=== PATIENT | female | born 1965 | race Caucasian/White ===

== ENCOUNTER 2018-06-13 00:16 | Outpatient (CLI) | payer BC, SELFPAY ==
[2018-06-13 10:39] LABS: Cholesterol 255 mg/dL (50-200); Glucose 90 mg/dL (70-100); HDL Cholesterol 77 mg/dL (40-60); LDL CHOLESTEROL 160 mg/dL (<100); Triglyceride 79 mg/dL (30-150)
== END 2018-06-13 00:36 ==
PROVIDERS: PCP Family Medicine; Visit Provider Family Medicine
DX: E66.3 Overweight (principal)
CPT/HCPCS: 36415; 80061; 82947; 83721

== ENCOUNTER 2019-11-23 01:51 | Outpatient (CLI) | payer BC, SELFPAY ==
[2019-11-23 11:59] LABS: Calculated LDL 193 mg/dL (<100); Cholesterol 284 mg/dL (<200); Glucose 92 mg/dL (74-106); HDL Cholesterol 80 mg/dL (40-60); Triglyceride 59 mg/dL (<150)
[2019-11-26 16:51] LABS: ALT 45 U/L (14-59); AST 26 U/L (15-37)
[2019-11-29 10:24] LABS: Hepatitis C Ab w Rflx HCV PCR Negative (Negative)
== END 2019-11-23 02:11 ==
PROVIDERS: PCP Family Medicine; Visit Provider Family Medicine
DX: E78.5 Hyperlipidemia, unspecified (principal); R73.9 Hyperglycemia, unspecified; Z11.59 Encounter for screening for other viral diseases
CPT/HCPCS: 36415; 80061; 82947

== ENCOUNTER 2019-11-26 11:29 | Outpatient (REF) | payer BC, SELFPAY ==
--- NOTE | 2019-11-26 10:45 | PAPFT_PTH ---
PATIENT: Zoila Conway LOC: [facility] U#:[id number] AGE/SX: 54/F ROOM: RE11/26/[address]: SUMA Boyd : 1965 BED: DIS: 11/26/2019 SPEC #: [id number] RECD: 11/26/19 12:58 STATUS: FREDDY REQ #: [id number] ALLISON: 11/26/19 10:[address]: Sheila Monzon DEPT: [facility] Cytology RECD BY: Kaitlynn Flynn ENTERED: 11/26/19 12:59 SP TYPE: PAPFT OTHR DR: Saeed Prieto MD Tissues: 1 - CX/ENDOCX FOR PAP SMEARS Procedures: PAP THIN PREP/UVM Screening HPV DNA PROBE Comments: [id number]
== END 2019-11-26 11:49 ==
LOC: LBN 11:29
PROVIDERS: PCP Family Medicine; Visit Provider Nurse Practitioner Family
DX: Z12.4 Encounter for screening for malignant neoplasm of cervix (principal); Z11.51 Encounter for screening for human papillomavirus (HPV)
CPT/HCPCS: 86803; 88142; 84450; 84460; 87624

== ENCOUNTER 2020-03-17 00:38 | Outpatient (CLI) | payer BC, SELFPAY ==
--- NOTE | 2020-03-17 06:45 | DI.US_ITS ---
EXAM: US PELVIS TRANSVAGINAL CLINICAL HISTORY: Endometrial hyperplasia, N85.00. TECHNIQUE: Transabdominal and transvaginal pelvic ultrasound was performed using standard protocol. COMPARISON: US PELVIS TRANSVAG from 03/30/2015 FINDINGS: KIDNEYS: Kidneys are symmetric in size. No evidence of renal calculi. No evidence of hydronephrosis. No renal mass or cyst identified. UTERUS: Position: Anteverted. Size: 12.4 long by 8.5 AP by 11.1 transverse cm Endometrium: Obscured by the patient's fibroids. Cm. Normal for patient's menstrual status. Myometrium: Numerous hypoechoic masses within the mitral medium consistent with fibroids. The larges t measures 5.4 x 3.6 x 3.8 cm. Cervix: Unremarkable. OVARIES: Right: 2.9 x 1.8 x 2.0 cm. The right ovary was only seen transabdominally. Cyst or mass: None. Left: Left ovary was not seen transabdominally or transvaginally. No left adnexal mass is appreciate d. CUL-DE-SAC: Free fluid: None. Other: None. IMPRESSION: 1. Normal sonographic appearance of the kidneys. 2. Enlarged fibroid uterus. Endometrial stripe could not be evaluated due to the multiple uterine fi broids. 3. The right ovary is unremarkable and visualized only transabdominally. The left ovary was not seen transabdominally or transvaginally. DATA REPOSITORY:
== END 2020-03-17 00:58 ==
PROVIDERS: PCP Family Medicine; Visit Provider Obstetrics & Gynecology
DX: N85.00 Endometrial hyperplasia, unspecified (principal); D25.9 Leiomyoma of uterus, unspecified; N85.2 Hypertrophy of uterus
CPT/HCPCS: 76830; 76856

== ENCOUNTER 2020-03-22 17:07 | Outpatient (REF) | payer BC, SELFPAY ==
--- NOTE | 2020-03-22 15:30 | ENDOMET_PTH ---
PATIENT: Zoila Conway LOC: N U#:[id number] AGE/SX: 55/F ROOM: RE03/22/[address]: Paul Dallas MD : 1965 BED: DIS: 03/22/2020 SPEC #: [id number] RECD: 03/22/20 17:12 STATUS: FREDDY REQ #: [id number] ALLISON: 03/22/20 15:[address]: Paul Dallas DEPT: Surgical Specimen RECD BY: Kaitlynn Fylnn ENTERED: 03/22/20 17:12 SP TYPE: Endomet OTHR DR: Saeed Prieto MD Tissues: 1 - ENDOMETRIUM BX/CURRETTE Procedures: GROSS AND MICRO LEVEL 4 Comments: [id number]
== END 2020-03-22 17:27 ==
LOC: LBN 17:07
PROVIDERS: PCP Family Medicine; Visit Provider Obstetrics & Gynecology
DX: N85.8 Other specified noninflammatory disorders of uterus (principal); N85.01 Benign endometrial hyperplasia
CPT/HCPCS: 88305

== ENCOUNTER 2020-03-23 00:20 | Outpatient (CLI) | payer BC, SELFPAY ==
--- NOTE | 2020-03-23 06:30 | DI.MAMMO_ITS ---
EXAM: MG MAMMO SCREENING MG MAMMO SCREENING the CLINICAL HISTORY: screening, Z12.39 TECHNIQUE: Mammograms were interpreted according to the usual protocol including computer analysis w [employer] CAD system, tomosynthesis and C-view imaging. COMPARISON: 2009 through 2015 FINDINGS: The breasts are composed of mainly fatty density , Breast Density category A. No suspicious masses or suspicious microcalcifications are seen. No skin thickening or abnormal axillary lymph nodes are seen. There has been no significant change from prior exams. IMPRESSION: BI-RADS Category 1, negative. Yearly screening mammography is recommended. Breast Density Category A, fatty density.
== END 2020-03-23 00:40 ==
PROVIDERS: PCP Family Medicine; Visit Provider Family Medicine
DX: Z12.31 Encounter for screening mammogram for malignant neoplasm of breast (principal)
CPT/HCPCS: 77063; 77067

== ENCOUNTER 2021-04-09 02:02 | Outpatient (CLI) | payer BC, SELFPAY ==
[2021-04-09 13:25] LABS: AST 20 U/L (15-37); Calculated LDL 122 mg/dL (<100); Cholesterol 217 mg/dL (<200); HDL Cholesterol 81 mg/dL (40-60); Triglyceride 71 mg/dL (<150)
== END 2021-04-09 02:03 | disposition home or self-care (01) ==
PROVIDERS: PCP Family Medicine; Visit Provider Family Medicine
DX: E78.5 Hyperlipidemia, unspecified (principal); K76.0 Fatty (change of) liver, not elsewhere classified
CPT/HCPCS: 36415; 80061; 84450

== ENCOUNTER 2021-06-13 02:57 | Outpatient (CLI) | payer BC, SELFPAY ==
[2021-06-13 10:28] LABS: Source Nasal/Nares
[2021-06-13 18:14] LABS: COVID-19 PCR Negative (Negative)
== END 2021-06-13 02:58 | disposition home or self-care (01) ==
LOC: LBO 02:57
PROVIDERS: PCP Family Medicine; Visit Provider Surgery
DX: Z20.822 Contact with and (suspected) exposure to COVID-19 (principal); Z01.818 Encounter for other preprocedural examination
CPT/HCPCS: 87635

== ENCOUNTER 2021-06-15 11:22 | Day surgery (SDC) | payer BC, SELFPAY ==
--- NOTE | 2021-06-15 11:17 | W.ANESPRE ---
General Info Date of Service Date Performed: 06/15/21 Height: 5 ft 6.5 in Weight: 95.254 kg Body Mass Index (BMI): 33.3 Surgical Procedure: Operation Date: 06/15/21 12:05 Proposed Procedures Side Surgeon stephenie Jacobo, DO Meds Allergies and Home Medications Allergies Allergy/AdvReac Type Severity Reaction Status Date / Time ANIMAL DANDER Allergy Mild Uncoded 06/15/21 11:44 DUST Allergy Mild Uncoded 06/15/21 11:44 Home Medication Medication Instructions Recorded atorvastatin 10 mg tablet 10 mg PO QHS #90 tab 11/20/20 fexofenadine 180 mg tablet 180 mg PO DAILY #90 tab 04/04/21 montelukast 10 mg tablet 10 mg PO QPM #90 tab 04/04/21 bisacodyl 5 mg tablet,delayed 5 mg PO ONCE #4 tab 06/08/21 release polyethylene glycol 3350 17 238 g PO ONCE #238 g 06/08/21 gram/dose oral powder Current Visit Medications: Current Medications Generic Name Dose Route Start Last Admin Trade Name Freq PRN Reason Stop Dose Admin Ringer's Solution 1,000 mls @ 80 mls/hr 06/15/21 06:00 IV 07/14/21 23:59 INFUSION BURTON IV Miscellaneous Supplies 1 each 06/15/21 06:00 Iv Access IV 07/14/21 23:59 DIRECTED BURTON Sodium Chloride 0 ml 06/15/21 06:00 Normal Saline Flush 10 Ml Syr IV 07/14/21 23:59 PRN PRN Sodium Chloride 0 ml 06/15/21 06:00 Normal Saline 10 Ml Vial IJ 07/14/21 23:59 DIRECTED PRN Sterile Water 0 ml 06/15/21 06:00 Water,Injection,Sterile 10 Ml Vial IJ 07/14/21 23:59 DIRECTED PRN PFSH Active Problems Active Problems: Problem Status Onset Code Intramural uterine fibroid D25.1 Simple endometrial hyperplasia N85.01 Hyperlipidemia with target LDL less than 100 E78.5 Endometrial hyperplasia 03/10/12 N85.00 Giant cell tumor 12/26/15 D48.9 Polyp of colon 12/06/13 K63.5 Facial lesion L98.9 Screening for viral disease Z11.59 Onychomycosis due to dermatophyte 06/23/12 B35.1 Medical History Medical History Endometrial hyperplasia (03/10/12) WITHOUT ATYPIA Giant cell tumor (12/26/15) Dr. Gomez; Tenosynovial Hyperlipidemia with target LDL less than 100 Intramural uterine fibroid Polyp of colon (12/06/13) 12/06/13; TUBULAR ADENOMA Simple endometrial hyperplasia Surgical History Surgical History bunionectomy (11/02/14) DR. ALEJANDRO; LEFT Endometrial Biopsy (02/07/12) SIMPLE HYPERPLASIA WITHOUT ATYPIA EXCISION MASS RIGHT MIDDLE FINGER (12/26/15) DR. MCCOY Tonsillectomy Tobacco Smoking/Tobacco Use Status: Former Tobacco Use Tobacco: How many years used: 2 Passive smoking exposure: Yes Second hand exposure: Yes Alcohol Alcohol Intake: current Alcohol intake frequency: 0-2 drinks per day Alcohol type: wine and hard liquor Substance Use Substance use: Never Substance use type: does not use Vital Signs and Lab Results Vital Signs Most Recent Vital Signs in EMR: Temp Pulse Resp BP Pulse Ox 36.5 C 68 16 140/87 99 06/15/21 11:38 06/15/21 11:38 06/15/21 11:38 06/15/21 11:38 06/15/21 11:38 Lab Results Blood Type / Crossmatch: No Data to Display Complete Blood Count: No Data to Display Complete Metabolic Panel: No Data to Display Liver Function Panel: No Data to Display Coagulation Panel: No Data to Display Cardiac Panel: No Data to Display Arterial Blood Gas: No Data to Display Venous Blood Gas: No Data to Display Pancreas Panel: No Data to Display Thyroid Panel: No Data to Display Infectious Disease: Coronavirus (COVID-19)(PCR) Negative (Negative) 06/13/21 09:00 06/13/21 Coronavirus 2019 Source Nasal/Nares 06/13/21 09:00 06/13/21 Blood Cultures: No Data to Display Toxicology Panel: No Data to Display Anesthesia Assessment and Plan Anesthesia History Personal History: No History of Anesthesia Complications Family History: No Family History of Anesthesia Complications Exercise Tolerance Exercise Tolerance: Metabolic Equivalents>4 Cardiac & Pulmonary Exam Cardiac Exam: Normal S1/S2 Heart Sounds Pulmonary Exam: Clear Bilateral Breath Sounds Airway Exam Known Difficult Airway: No Mallampati Class: 2 Mouth Opening: Normal (> 3cm) Thyromental Distance: Greater than 3 cm Neck Range of Motion: Full ROM Neck Circumference: Normal Teeth Condition: Normal Dentition ASA Classification ASA Score: ASA 2 Emergency Case?: No NPO Status NPO Status: NPO Clears >2 hours, Solids >8 hours Anesthesia Plan Resuscitation Status: Full Code Anesthesia Technique: General Anesthesia Airway Planned: Natural Airway Monitors Used: Standard Monitors Preoperative Comments:: 56 yo female with a history of colon polyps/tubular adenoma here for a colonoscopy. Denies any cardiac, pulmonary, liver, kidney neurologic issues. Former smoker, occ etoh. Plan prop/no airway.
[2021-06-15 11:38] VITALS: BP 140/87; PULSE 68; RESP 16; TEMP 36.5; O2SAT 99
[2021-06-15] MEDS: Lactated Ringers 1,000 ML 80 ML IV (11:59)
[2021-06-15 12:07] VITALS: BMI 33.3
--- NOTE | 2021-06-15 13:14 | BOWEL_PTH ---
PATIENT: Zoila Conway LOC: [facility] U#:[id number] AGE/SX: 56/F ROOM: RE06/15/[address]: Claire Jacobo : 1965 BED: DIS: 06/15/2021 SPEC #: [id number] RECD: 06/15/21 13:33 STATUS: FREDDY REQ #: [id number] ALLISON: 06/15/21 13:[address]: Claire Jacobo DEPT: Surgical Specimen RECD BY: Kaitlynn Flynn ENTERED: 06/15/21 13:33 SP TYPE: Bowel OTHR DR: Saeed Prieto MD Tissues: 1 - BIOPSY BOWEL Procedures: GROSS AND MICRO LEVEL 4 Comments: [id number]
[2021-06-15 13:35] VITALS: BP 100/69; PULSE 66; RESP 16; TEMP 36.6; O2SAT 97
--- NOTE | 2021-06-15 13:37 | PDOC.DSDIS_ITS ---
Discharge Plan Disposition Patient Disposition: HOME Condition: Good Discharge Details Reason For Visit: colon scope Attending Provider: Claier Jacobo Primary Care Provider: Saeed Prieto Home Meds and New Rx's Prescriptions: Continued fexofenadine 180 mg tablet 180 mg PO DAILY Qty: 90 RF: 3 montelukast 10 mg tablet 10 mg PO QPM Qty: 90 RF: 3 atorvastatin 10 mg tablet 10 mg PO QHS Qty: 90 RF: 3 Discontinued polyethylene glycol 3350 17 gram/dose powder 238 g PO ONCE Qty: 238 RF: 0 bisacodyl [Dulcolax (bisacodyl)] 5 mg tablet,delayed release (DR/EC) 5 mg PO ONCE Qty: 4 RF: 0 Discharge Instructions Additional Instructions: DSU Colonoscopy Post- Op Instructions Instructions for Everyone who is given Anesthesia: For your safety, please do the following for the next twenty-four (24) hours: *Do Not operate a motor vehicle (car, truck, motorcycle, etc.) *Do Not drink alcoholic beverages or use any recreational drugs for the first 24 hours or while taking pain medications. The medications in your body may have a reaction that can be dangerous. *Do Not make any important decisions or sign any important papers. Findings: small polyp few small diverticula Follow up: My office will send a letter in 2 to 3 weeks time detailing as to what type of polyp it was we want you to repeat your colonoscopy. Make sure you are following a high-fiber diet and avoid straining to move your bowels. 1. No lifting over 20 pounds or strenuous activity for the first 24 hours after your procedure. After 24 hours there are no restrictions on your activity but you may feel fatigued for a few days. 2. After you arrive home you may have a light meal and return to your normal diet as you can tolerate it without feeling sick to your stomach. 3. You may have a bloated, gaseous feeling in your belly (abdomen) after a colonoscopy. Passing gas and belching will help. Walking or lying down on your left side with your knees flexed may relieve the discomfort. Call the office at [phone] (Office) or [phone] (Hospital) right away if you notice any of the following: a.Vomiting of blood or ?coffee ground stools?. b.Rectal bleeding 1Tbsp, blood clots or continuous bleeding. c.Severe belly (abdominal) pain. d.A hard distended belly (abdomen) and an inability to pass gas. 4. Please don?t expect to have a normal BM (bowel movement) for 2-3 days after your procedure. 5. If there are questions regarding the findings of your procedure, please contact your doctor 6. If you are unable to contact your doctor with a problem, contact the hospital at [phone]. 7. Continue all your regular medications unless directed otherwise. I understand the above instructions and have no questions. Signature of Patient or Adult Escort Name of Responsible Adult Escort Signature of Nurse Date/Time Activity:: see above Diet:: see above Discharge Orders Discharge Orders: Discharge Order (Routine); Ordered 06/15/21 Ordered By: Claire Jacobo DS: Diagnosis Discharge Diagnosis (1) Adenomatous polyps: Status: Acute (2) Diverticula of colon: Status: Acute
--- NOTE | 2021-06-15 13:41 | W.COLOREPORT ---
Colonoscopy Report Date of procedure: 06/15/21 Pre-op diagnosis general: A. polyps Post-op diagnosis procedure note: other (polyps and diverticula ) Surgeon: Claire Jacobo Anesthesia Type: General:No Airway Estimated blood loss (mL): 1 Pathology: other Complications: None Disposition: same day Prep: Miralax/Dulcolax Retraction Time: 10 Procedure Description: After informed consent was obtained the patient was taken to the procedure room and placed in a left decubitous position. Monitors were applied and a time out was done. The patients name, date of , procedure, allergies to medications and metal in their body was reviewed. The patient was then sedated. Once sedated and comfortable a rectal exam was done. External exam was normal. Internal exam revealed a normal sphincter tone and no palpable masses. The scope was then introduced and retrofelexed. No internal hemorrhoids were identified. The scope was then advanced to the cecum w/out difficulty. The TI and appendiceal orifice were identified. The prep was good. The scope was then slowly retracted over 10 minutes back into the rectum. She had a flat 5mm polyp that was removed at 30 cm with a cold biting forcep. All specimen was retrieved and no bleeding was noted. She has a few small scattered diverticula in the sigmoid colon. There is no signs of active bleeding or infection. The scope was removed and the patient was woken up and taken back to Same day surgery in stable condition. The patient tolerated the procedure well and there were no immediate complications. Follow up: The patient should follow up in 5 years unless they develop changes in bowel habits or other new gastrointestinal complaints.
[2021-06-15 14:09] VITALS: BP 161/72; PULSE 63; RESP 18; TEMP 36.1; O2SAT 98
--- NOTE | 2021-06-15 14:13 | W.ANESPOSTOP ---
Postoperative Evaluation Date, Time and Location Date Performed: 06/15/21 Time Performed: 14:13 Patient Location: Day Surgery Unit Vital Signs Most Recent Imported Vital Signs: Most Recent Vital Signs Temp Pulse Resp BP Pulse Ox 36.1 C L 63 18 161/72 H 98 06/15/21 14:09 06/15/21 14:09 06/15/21 14:09 06/15/21 14:09 06/15/21 14:09 Pain Score Most Recent Pain Score: Most Recent Pain Score Pain Level 0 06/15/21 14:09 Assessment Mental Status: Awake (Alert & Oriented to Patient Baseline) Airway and Respiratory Function: Patent airway with normal (patient baseline) respiratory exam Cardiovascular Function: Hemodynamically Stable Hydration Status: Adequately Hydrated Nausea & Vomiting: No Nausea or Vomiting Pain: Pt. Denies Any Pain Peripheral Nerve Block: Patient did not receive a nerve block
== END 2021-06-15 14:08 | disposition home or self-care (01) ==
PROVIDERS: PCP Family Medicine; Visit Provider Surgery
PROC: 0DJD8ZZ Inspection of Lower Intestinal Tract, Via Natural or Artificial Opening Endoscopic (ICD-10-PCS; CPT 45378; principal; 2021-06-15 12:00)
DX: Z12.11 Encounter for screening for malignant neoplasm of colon (principal); D12.5 Benign neoplasm of sigmoid colon; K57.30 Diverticulosis of large intestine without perforation or abscess without bleeding
CPT/HCPCS: 45380; 88305; J2001

== ENCOUNTER → 2022-04-19 15:09 | Outpatient (CLI) | payer BC, SELFPAY ==
--- NOTE | 2022-04-19 11:00 | DI.RAD_ITS ---
Exam(s) XR KNEE RT 4V AP,LAT,HERI,PAT EXAM: XR KNEE RT 4V AP,LAT,HERI,PAT CLINICAL HISTORY: Right knee pain--M25.561. TECHNIQUE: 2D digital imaging was performed of the right knee. Five views obtained. AP, lateral, Me rchant and PA tunnel views were obtained. COMPARISON: No exams were available for comparison FINDINGS: BONES: No acute fracture is present. No bony destructive lesion is seen. JOINTS: There is periarticular spurring involving all 3 joint compartments. There is marked narrowin g of the patellofemoral joint. No joint effusion is seen. SOFT TISSUE: Normal. IMPRESSION: Moderate degenerative changes of the right knee. DATA REPOSITORY: RADIATION DOSE DELIVERED:
== END ==
PROVIDERS: PCP Family Medicine; Visit Provider Physician Assistant Medical
DX: M17.11 Unilateral primary osteoarthritis, right knee
CPT/HCPCS: 73564

== ENCOUNTER → 2022-05-07 01:33 | Outpatient (CLI) | payer BC, SELFPAY ==
--- NOTE | 2022-05-07 07:45 | DI.MAMMO_ITS ---
Exam(s) MAMMO SCREENING EXAM: MAMMO SCREENING CLINICAL HISTORY: screening,z12.39 TECHNIQUE: Mammograms were interpreted according to the usual protocol including computer analysis w [employer] CAD system, tomosynthesis and C-view imaging. COMPARISON: FINDINGS: The breasts are of moderate density with fairly symmetrical distribution of fibroglandular tissue. N o dominant mass or clumped microcalcification is identified in either breast. The current examinatio n compared with previous examinations including March 2020 and there has been no gross interval change in appearance in comparison with the prior studies. IMPRESSION: No specific evidence of malignancy at this time. Routine screening examinations are suggested at yea rly intervals in this age group according to the ACS ACR guidelines. BI-RADS Category 1 - Negative Breast Density - Category B - Scattered areas of fibroglandular density
== END ==
PROVIDERS: PCP Family Medicine; Visit Provider Family Medicine
DX: Z12.31 Encounter for screening mammogram for malignant neoplasm of breast (principal)
CPT/HCPCS: 77063; 77067

== ENCOUNTER 2023-07-30 11:27 | Outpatient (CLI) | payer BC, SELFPAY ==
[2023-07-30 12:39] LABS: HGB 13.9 g/dL (11.2-15.7); MCH 31.3 pg (27.0-33.0); MCHC 34.8 % (32.0-36.0); MCV 90 fL (80-95); MPV 11.7 fL (8.0-11.0); Platelet Count 210 10^3/uL (130-400); RBC 4.44 10^6/uL (3.93-5.22); RDW 12.5 % (11.7-14.6); RDW-SD 41.1 fL; WBC 5.96 10^3/uL (4.4-10.8)
[2023-07-30 12:51] LABS: Hemoglobin A1C 4.9 % (<5.7)
[2023-07-30 13:00] LABS: Calculated LDL 107 mg/dL (<100); Cholesterol 195 mg/dL (<200); HDL Cholesterol 76 mg/dL (40-60); TSH (W/Ref FT4) 3.86 uIU/mL (0.36-3.74); Triglyceride 62 mg/dL (<150)
[2023-07-30 13:43] LABS: FREE T4 1.04 ng/dL (0.76-1.46)
== END 2023-07-30 11:28 | disposition home or self-care (01) ==
LOC: LOS 11:27
PROVIDERS: PCP Family Medicine; Visit Provider Family Medicine
DX: E66.9 Obesity, unspecified (principal); E78.5 Hyperlipidemia, unspecified; F34.1 Dysthymic disorder; M79.671 Pain in right foot; Z00.00 Encounter for general adult medical examination without abnormal findings
CPT/HCPCS: 36415; 80061; 85027; 83036; 84439; 84443

== ENCOUNTER 2024-05-18 01:28 | Outpatient (CLI) | payer BC, SELFPAY ==
--- NOTE | 2024-05-18 07:35 | DI.RAD_ITS ---
Exam(s) XR FOOT RT COMPLETE EXAM: XR FOOT RT COMPLETE CLINICAL HISTORY: Right foot pain,m79.671. TECHNIQUE: 2D digital imaging was performed of the right foot. Three images were obtained. AP, obl ique and lateral views were obtained. COMPARISON: No exams were available for comparison FINDINGS: BONES: No acute fracture is present. No bony destructive lesion is seen. There is a small plantar asuncion caneal spur. JOINTS: No dislocation present. There is a mild hallux valgus deformity. Degenerative changes are se en in the foot particularly at the tarsometatarsal joints and the talonavicular joint. There is loss of the normal plantar arch. Mild spurring is seen at the dorsal aspect of the 1st metatarsal head. SOFT TISSUE: There is mild soft tissue swelling seen around the ankle. IMPRESSION: Chronic changes in the right foot as described above. DATA REPOSITORY: RADIATION DOSE DELIVERED:
== END 2024-05-18 01:48 ==
LOC: DI 01:28
PROVIDERS: PCP Family Medicine; Visit Provider Podiatrist
DX: M79.671 Pain in right foot (principal)
CPT/HCPCS: 73630

== ENCOUNTER 2024-05-26 02:06 | Outpatient (CLI) | payer BC, SELFPAY ==
--- NOTE | 2024-05-26 08:00 | DI.MAMMO_ITS ---
Exam(s) MAMMO SCREENING EXAM: MAMMO SCREENING CLINICAL HISTORY: screening,Z12.39 TECHNIQUE: Mammograms were interpreted according to the usual protocol including computer analysis w [employer] CAD system, tomosynthesis and C-view imaging. COMPARISON: 2015 through 2021 FINDINGS: The breasts are composed of mainly fatty density , Breast Density category A. No suspicious masses or suspicious microcalcifications are seen. No skin thickening or abnormal axillary lymph nodes are seen. There has been no significant change from prior exams. IMPRESSION: BI-RADS Category 1, Negative mammogram Yearly screening mammography is recommended. Breast Density - Category A, fatty density. A negative radiographic report should not delay biopsy if a dominant or clinically suspicious mass is present. Up to ten percent of cancers are not identified on mammography. A negative report may reinforce clinical impression. Adenosis and dense breasts may obscure an underlying neoplasm. False positive reports average 6 to 10%. Patient will receive a letter notifying them of these results.
== END 2024-05-26 02:26 ==
LOC: DI 02:06
PROVIDERS: PCP Family Medicine; Visit Provider Family Medicine
DX: Z12.31 Encounter for screening mammogram for malignant neoplasm of breast (principal)
CPT/HCPCS: 77063; 77067

== ENCOUNTER 2024-06-25 01:02 | Outpatient (CLI) | payer BC, SELFPAY ==
--- NOTE | 2024-06-25 08:09 | DI.RAD_ITS ---
Exam(s) XR HEEL RT OS CALCIS EXAM: XR HEEL RT OS CALCIS CLINICAL HISTORY: posterior tibial tendon dysfunction,M76.821,surgical planning. TECHNIQUE: 2D digital imaging was performed. COMPARISON: No exams were available for comparison FINDINGS: Two views-lateral and Alex axial view: No evidence of calcaneal fracture. Pes planus is noted. Slight cortical irregularity noted in the l ateral aspect of the inferior calcaneus seen on the axial view which may be within normal limits. No obvious osseous tarsal coalition IMPRESSION: As above. DATA REPOSITORY: RADIATION DOSE DELIVERED:
--- NOTE | 2024-06-25 08:09 | DI.RAD_ITS ---
Exam(s) XR ANKLE RT COMPLETE EXAM: XR ANKLE RT COMPLETE CLINICAL HISTORY: posterior tibial tendon dysfunction, surgical planning, m76.821. TECHNIQUE: 2D digital imaging was performed. COMPARISON: CR XR HEEL RT OS CALCIS from 06/25/2024 FINDINGS: 3 views No evidence of fracture or widening the ankle mortise. There are moderate degenerative changes in th e tibiotalar joint. There is pes planus. Hindfoot valgus deformity evident. Trigonum noted. Small inferior calcaneal spur evident. IMPRESSION: As above. DATA REPOSITORY: RADIATION DOSE DELIVERED:
== END 2024-06-25 01:22 ==
LOC: DI 01:12
PROVIDERS: PCP Family Medicine; Visit Provider Podiatrist
DX: M76.821 Posterior tibial tendinitis, right leg (principal)
CPT/HCPCS: 73610; 73650

== ENCOUNTER 2024-07-09 00:26 | Outpatient (CLI) | payer BC, SELFPAY ==
--- NOTE | 2024-07-09 06:30 | DI.MRI_ITS ---
Exam(s) MR LOWER JOINT RT WO EXAM: MR LOWER JOINT RT WO CLINICAL HISTORY: POSTERIOR TIBIAL TENDON DYSFUNCTION,RT LOWER EXT,M76.821 TECHNIQUE: Multiplanar multisequence MRI was performed without intravenous contrast. COMPARISON: No exams were available for comparison FINDINGS: SKIN: No evidence of ulcer nor subcutaneous tract. BONES/JOINTS: There is prominent hindfoot valgus and pes planus evident. There is degenerative gray e the subtalar joint with opposing degenerative subarticular cysts and surrounding marrow edema there is significant cartilage degenerative changing in ankle mortise/tibiotalar joint. There are no oste ochondral defects in the talar dome nor degenerative subarticular cysts in the talar dome. There als o degenerative changes in the talonavicular joint and intertarsal and tarsometatarsal joints main Li sfranc ligament appears intact. Significant degenerative changes evident at the 1st tarsometatarsal joint as well as 2nd tarsometatarsal joint. No evidence of fracture nor bone contusion. No joint effusion is present. The talar dome appears unr emarkable. The ankle mortise is maintained. There is no evidence of para-articular ganglion.There i s no evidence of osseous tarsal coalition. Os trigonum noted. LIGAMENTS: The anterior and posterior tibiofibular and calcaneofibular ligaments exhibit abnormal sig nal, particularly posterior consistent with a some tearing. Heterogeneous appearance of the anterior talofibular ligament consistent with chronic partial tearing. There is also significant signal abno rmality in the posterior talofibular ligament consistent with tearing. The calcaneal fibular ligamen t exhibits signal abnormality consistent with partial tearing. On the medial aspect of the ankle the re is some signal abnormality in the deltoid ligament also evident. The plantar calcaneonavicular spring ligament SINUS TARSI: This space is affected by the architectural distortion with some loss of the normal fat signal within this space. There is no evidence of sinus tarsi ganglion cyst. MUSCULOTENDINOUS STRUCTURES: Achilles tendon: Mild increased intrasubstance signal. No significant thickening. No significant te ar. Mild fluid in the retrocalcaneal bursa. Plantar fascia: Moderate size inferior calcaneal spur. Mild adjacent thickening of the plantar fasci a. No evidence of tear. No abnormal nodularity. Anterior Extensor tendons: No tears can't Medial Tendons: Posterior tibial: There is tenosynovitis. Mild thickening. No tear. Flexor Digitorum longus: There is tenosynovitis. No tear evident Flexor Hallicus longus: Unremarkable. No tear or tenosynovitis evident. Lateral Tendons: Peroneus longus: Split tearing noted superiorly but no full-thickness tear and can be traced to its i nsertion site on the plantar medial aspect of the foot. Lateral tenosynovitis evident Peroneus brevis:Tenosynovitis no high-grade tear. SOFT TISSUES: There is longitudinally orientated fluid signal along the plantar aspect of the flexor digitorum tendons OTHER FINDINGS: None. IMPRESSION: 1. Multilevel findings including hindfoot valgus and pes planus with CIS significant degenerative francia nges in the articulations of the ankle, hindfoot, and midfoot. 2. There is partial tearing of anterior and posterior tibiofibular ligaments and anterior and posteri or talofibular ligaments as well as the fibers of the deltoid ligament 3. Posterior tibialis thickening-tendinopathy and tenosynovitis 4. Tenosynovitis of the peroneal tendons on the lateral aspect of the foot as well as flexor digitor um tendons. DATA REPOSITORY:
--- NOTE | 2024-07-09 15:34 | DI.VRAD_ITS ---
PROCEDURE INFORMATION: Exam: MR Right Lower Extremity Joint Without Contrast; Ankle Exam date and time: 07/09/2024 7:52 AM Age: 59 years old Clinical indication: Other: Posterior tibial tendon disfuction TECHNIQUE: Imaging protocol: Magnetic resonance imaging of the right lower extremity without contrast. Exam focused on the ankle. COMPARISON: CR XR ANKLE RT COMPLETE 06/25/2024 8:02 AM FINDINGS: Bones/joints: Severe hindfoot valgus and pes planus. Reactive marrow edema and cystic changes in the anterior calcaneus along the anterior aspect of the posterior subtalar joint. Cystic change in reactive marrow edema in the posterior talus at the posterior subtalar joint. Degenerative arthritis in the ankle mortise with moderate to high-grade chondromalacia on both sides of the joint. Small effusion in the ankle mortise. Advanced degenerate arthritis in the talonavicular articulation. Degenerate arthritis in the inter tarsal joints. LIGAMENTS: Distal tibiofibular syndesmosis: Heterogeneous appearance of the anterior posterior tibiofibular ligaments consistent with partial tearing Anterior talofibular ligament: Heterogeneous thickening of the anterior talofibular ligament consistent with partial tearing. Posterior talofibular ligament: Heterogeneous appearance posterior talofibular ligament consistent with partial tearing. Calcaneofibular ligament: Unremarkable. No tear. Deltoid ligament complex: Heterogeneous appearance of the deep fibers of the deltoid ligament consistent with partial tearing. TENDONS: Flexor tendons of foot: Flexor digitorum tenosynovitis. Tibialis posterior tendon: Thickening of the posterior tibialis tendon consistent with tendinopathy. Posterior tibialis tenosynovitis. Peroneal tendons: Peroneal tenosynovitis. Extensor tendons of foot: Unremarkable as visualized. Tibialis anterior tendon: Unremarkable as visualized. Achilles tendon: Unremarkable as visualized. Tarsal canal (Sinus tarsi): Unremarkable. Normal signal of the fat. Tarsal tunnel: Unremarkable. Soft tissues: Unremarkable. Plantar fascia: Plantar calcaneal spur. Thickening of the base of the plantar fascia consistent sequelae chronic plantar fasciitis. IMPRESSION: 1. Hindfoot valgus and pes planus 2. Degenerative arthritis in the joints of the ankle and hindfoot 3. Posterior tibialis tenosynovitis and tendinopathy 4. Tenosynovitis peroneal tendons and flexor digitorum tendons. 5. Partial tearing anterior and posterior talofibular ligaments and anterior posterior tibiofibular ligaments and deep fibers of the deltoid ligament 6. Sequelae of chronic plantar fasciitis. Dictated and Authenticated by: Angelina Hammer MD. Ordering:MENDY Cleveland MD
== END 2024-07-09 00:46 ==
LOC: DI 00:26
PROVIDERS: PCP Family Medicine; Visit Provider Podiatrist
DX: M76.821 Posterior tibial tendinitis, right leg (principal)
CPT/HCPCS: 73721

== ENCOUNTER 2024-11-19 16:10 | Outpatient (REF) | payer BC, SELFPAY ==
--- NOTE | 2024-11-19 15:30 | ENDOMET_PTH ---
PATIENT: Zoila Conway LOC: [facility] U#:[id number] AGE/SX: 59/F ROOM: RE11/19/[address]: Cara Julian DO : 1965 BED: DIS: 11/19/2024 SPEC #: [id number] RECD: 11/19/24 18:31 STATUS: FREDDY REQ #: [id number] ALLISON: 11/19/24 15:[address]: Cara Julian DEPT: Surgical Specimen RECD BY: Kaitlynn Flynn ENTERED: 11/19/24 18:31 SP TYPE: Endomet OTHR DR: Saeed Prieto MD Tissues: 1 - ENDOMETRIUM BX/CURRETTE Procedures: GROSS AND MICRO LEVEL 4 Comments: [id number]
== END 2024-11-19 16:11 | disposition home or self-care (01) ==
LOC: LBN 16:10
PROVIDERS: PCP Family Medicine; Visit Provider Obstetrics & Gynecology
DX: K13.70 Unspecified lesions of oral mucosa (principal)
CPT/HCPCS: 88305

== ENCOUNTER 2025-03-21 17:29 | Outpatient (CLI) | payer BC, SELFPAY ==
--- NOTE | 2025-03-21 17:56 | DI.RAD_ITS ---
Exam(s) XR KNEE LT 4V AP,LAT,HERI,PAT EXAM: XR KNEE LT 4V AP,LAT,HERI,PAT CLINICAL HISTORY: evaluate pathology. TECHNIQUE: 2D digital imaging was performed. Three views. COMPARISON: CR XR KNEE RT 4V AP,LAT,HERI,PAT from 04/19/2022 FINDINGS: BONES: No acute fracture is present. No bony destructive lesion is seen. JOINTS: There is severe narrowing of the medial femoral tibial joint space as well as the lateral patellofemoral joint, with a [id number] appearance. There is prominent periarticular spurring. There is lateral patellar subluxation and lateral patellar tilt. Chondrocalcinosis is present. No joint effusion is seen. SOFT TISSUE: Normal. IMPRESSION: Severe degenerative changes of the patellofemoral medial femoral tibial joints. DATA REPOSITORY: RADIATION DOSE DELIVERED:
== END 2025-03-21 17:49 ==
LOC: DI 17:32
PROVIDERS: PCP Family Medicine; Visit Provider Nurse Practitioner Family
DX: M17.12 Unilateral primary osteoarthritis, left knee (principal)
CPT/HCPCS: 73564

== ENCOUNTER 2025-04-21 14:46 | Outpatient (REF) | payer BC, SELFPAY ==
[2025-04-21 14:03] LABS: Glucose Negative (Negative)
== END 2025-04-21 14:47 | disposition home or self-care (01) ==
LOC: LBN 14:46
PROVIDERS: PCP Family Medicine; Visit Provider Nurse Practitioner Acute Care
DX: N39.0 Urinary tract infection, site not specified (principal); R39.9 Unspecified symptoms and signs involving the genitourinary system
CPT/HCPCS: 81003; 87086

== ENCOUNTER → 2025-08-09 01:37 | Outpatient (CLI) | payer BC, SELFPAY ==
--- NOTE | 2025-08-09 | DI.MRI_ITS ---
Exam(s) MR PELVIS WO/W EXAM: MR PELVIS WO/W CLINICAL HISTORY: PELVIC MASS, R19.00, POSTMENOPAUSAL, ? ETIOLOGY TECHNIQUE: Multiplanar multisequence MRI of the pelvis was performed. CONTRAST MATERIAL: IV Contrast: 19 mL of Dotarem contrast administered. COMPARISON: US US PELVIS TRANSVAGINAL from 03/16/2025 FINDINGS: Uterus: The uterus is enlarged measuring 15.5 cm long by 9.3 cm AP x 11 cm transverse. There are innumerable uterine fibroids present. The largest is an intramural fibroid in the fundus measuring 4.6 cm long by 6 cm transverse by 4.8 cm AP. There is a 3.7 x 4.3 cm intramural fibroid in the lower uterine segment on the left. There is a subserosal fibroid seen posteriorly in the lower uterine segment measuring 4.0 transverse by 4.1 AP by 2.4 cm craniocaudad. There is a subserosal fibroid in the left fundus measuring 4.8 cm transverse by 3.6 cm AP x 3.5 cm craniocaudad. There are 2 pedunculated fibroids arising from the left uterus. The larger measures 2.9 x 3.5 cm. The endometrium measures up to 4 mm. Ovaries: The ovaries are not definitely visualized on this examination. Urinary bladder: Unremarkable. Bowel: There is no evidence bowel obstruction or bowel wall thickening. Lymph nodes: There is no adenopathy in the pelvis. Peritoneum: There is no significant free pelvic fluid noted. Musculoskeletal: There is a large partial tear of the right hamstring tendon. There is tendinosis of the left hamstring. The visualized lumbosacral spine is within normal limits. Aorta: The visualized iliac and femoral arteries show no evidence of ectasia or aneurysm. Soft Tissues: Unremarkable. IMPRESSION: 1. Markedly enlarged uterus containing innumerable uterine fibroids. The largest fibroid is in the fundus and measures 4.6 x 6 x 4.8 cm. Intramural, subserosal and pedunculated fibroids are present. 2. The ovaries were not visualized on this examination. 3. Large partial tear of the right hamstring tendon. Left hamstring tendinosis. DATA REPOSITORY:
[2025-08-09] MEDS: Gadoterate meglumine 20 ML SYRINGE IJ (08:44)
[2025-08-09] MEDS: Normal Saline Flush 10 ML SYR IVP (08:45)
== END ==
LOC: DI 01:37
PROVIDERS: PCP Family Medicine
DX: S76.311A Strain of muscle, fascia and tendon of the posterior muscle group at thigh level, right thigh, initial encounter; N85.2 Hypertrophy of uterus; D25.1 Intramural leiomyoma of uterus; X58.XXXA Exposure to other specified factors, initial encounter
CPT/HCPCS: 72197

== ENCOUNTER 2025-08-15 04:12 | Outpatient (CLI) | payer BC, SELFPAY ==
[2025-08-15 13:48] LABS: HCT 41.7 % (36.0-46.0); HGB 14.2 g/dL (11.2-15.7); MCH 30.9 pg (27.0-33.0); MCHC 34.1 % (32.0-36.0); MCV 91 fL (80-95); MPV 10.6 fL (8.0-11.0); Platelet Count 199 10^3/uL (130-400); RBC 4.59 10^6/uL (3.93-5.22); RDW 12.6 % (11.7-14.6); RDW-SD 42.0 fL; WBC 7.11 10^3/uL (4.4-10.8)
[2025-08-15 14:07] LABS: Hemoglobin A1C 4.9 % (<5.7)
[2025-08-15 17:40] LABS: Anion Gap 6 mmol/L (3-11); BUN 16 mg/dL (9-23); CO2 30.0 mmol/L (20.0-31.0); Calcium 9.2 mg/dL (8.3-10.6); Chloride 107 mmol/L (98-107); Cholesterol 217 mg/dL (<200); Glucose 84 mg/dL (74-106); HDL Cholesterol 87 mg/dL (>40); Potassium 3.8 mmol/L (3.5-5.1); Sodium 143 mmol/L (136-145)
== END 2025-08-15 04:13 | disposition home or self-care (01) ==
LOC: LBO 04:12
PROVIDERS: PCP Family Medicine; Visit Provider Student in an Organized Health Care Education/Training Program
DX: M17.12 Unilateral primary osteoarthritis, left knee (principal); Z01.818 Encounter for other preprocedural examination; Z13.220 Encounter for screening for lipoid disorders; R73.9 Hyperglycemia, unspecified
CPT/HCPCS: 36415; 80048; 80061; 85027; 83036

== ENCOUNTER 2025-08-16 15:37 | Outpatient (CLI) | payer BC, SELFPAY ==
--- NOTE | 2025-08-16 13:00 | DI.RAD_ITS ---
Exam(s) XR KNEE LT 1V XR STANDING ALIGNMENT EXAM: XR STANDING ALIGNMENT and XR knee LT 1 V CLINICAL HISTORY: PRE OP L TKA. TECHNIQUE: 2D digital imaging was performed. Five images were obtained. COMPARISON: CR XR KNEE RT 4V AP,LAT,HERI,PAT from 04/19/2022 CR XR ANKLE RT COMPLETE from 06/25/2024 CR XR HEEL RT OS CALCIS from 06/25/2024 CR XR KNEE LT 4V AP,LAT,HERI,PAT from 03/21/2025 FINDINGS: BONES: There are degenerative changes seen in the hips bilaterally characterized by asymmetric joint space narrowing. In the left knee, there is marked narrowing of the medial femoral tibial joint and the patellofemoral joint. Osteophytes are seen in all 3 joint compartments. There is chondrocalcinosis in the lateral femoral tibial joint. In the right knee, there is moderate narrowing particularly the medial femoral tibial joint. Osteophytes are seen both medially and laterally as is chondrocalcinosis. The ankles are well maintained.There is no significant leg length discrepancy. SOFT TISSUE: Normal. IMPRESSION: There is marked left knee osteoarthritis and moderate right knee osteoarthritis. DATA REPOSITORY: RADIATION DOSE DELIVERED:
== END 2025-08-16 15:38 | disposition home or self-care (01) ==
LOC: DIORS 15:38
PROVIDERS: PCP Family Medicine; Visit Provider Physician Assistant
DX: M17.12 Unilateral primary osteoarthritis, left knee (principal); M17.11 Unilateral primary osteoarthritis, right knee
CPT/HCPCS: 73560; 77073

== ENCOUNTER 2025-08-24 09:43 | Day surgery (SDC) | payer BC, SELFPAY ==
[2025-08-24] VITALS (14 sets, daily range): BP systolic 133–148; BP diastolic 78–88; PULSE 65–81; RESP 9–20; TEMP 36.1–36.6; O2SAT 88–100; BMI 33.3
--- NOTE | 2025-08-24 07:29 | PDOC.DSDIS_ITS ---
Date of service: 08/24/25 Discharge Plan Disposition Patient Disposition: Home Condition: Good Discharge Details Reason For Visit: L TKR Attending Provider: Shiv Gutiérrez Primary Care Provider: Saeed Prieto Home Meds and New Rx's Prescriptions: New acetaminophen 500 mg tablet 1,000 mg PO TID Qty: 90 3RF aspirin 81 mg tablet,delayed release (DR/EC) 81 mg PO BID Qty: 60 0RF celecoxib 200 mg capsule 200 mg PO BID Qty: 60 0RF dexamethasone 4 mg tablet 4 mg PO DAILY Qty: 2 0RF docusate sodium 100 mg capsule 100 mg PO BID PRNQty: 28 0RF pantoprazole 40 mg tablet,delayed release (DR/EC) 40 mg PO DAILY Qty: 14 0RF gabapentin 300 mg capsule 300 mg PO QHS Qty: 14 0RF oxycodone 5 mg tablet 5 mg PO Q4H PRNQty: 18 0RF Continued bupropion HCl 300 mg tablet extended release 24 hr 300 mg PO QAM Qty: 30 5RF atorvastatin 10 mg tablet 10 mg PO QHS Qty: 90 3RF montelukast 10 mg tablet See Rx Instructions .ROUTE .COMPLEX Qty: 90 3RF Dose Instruction: TAKE 1 TABLET BY MOUTH EVERY EVENING Rx Instructions: TAKE 1 TABLET BY MOUTH EVERY EVENING fexofenadine 180 mg tablet 180 mg PO DAILY Qty: 90 3RF estradiol 0.1 mg/24 hr patch semiweekly 1 patch transdermal .change twice/week Qty: 24 3RF progesterone micronized [Prometrium] 100 mg capsule 100 mg PO QAM Qty: 90 3RF Discharge Instructions Additional Instructions: Total Knee Discharge Instructions Activity: The most important activity is to walk and to work on gentle motion (both flexion and extension). You should try to take short walks a few times a day. It is important that when resting you work on keeping the knee straight. Avoid putting a pillow behind the knee as this will encourage flexion. Work on range of motion exercises as provided by Physical Therapy. - Start outpatient physical therapy within 2 weeks. - You should wear the OLIVA hose on both legs for 2 weeks. You may remove these at night. You may also use any compression sock in place of the OLIVA hose. - Utilize [employer] to review exercises, see videos on exercises and obtain basic information pertaining to your surgery and your recovery. Dressing: Remove the Carlos wrap by 2 days after your surgery and put on the OLIVA stocking given to you from the hospital. Keep the surgical dressing (underneath the CARLOS wrap) in place for at least one week. After the first week it may be removed and replaced with light gauze and tape or nothing. The wound and dressing may get wet after 3 days but avoid soaking the dressing or otherwise it will need to be changed. Many people prefer covering the dressing with cling wrap (saran wrap) to minimize it from getting soaked. If it gets wet, just pat dry. If it starts to peel off then it will need to be changed. Medications: - You should take Tylenol and anti-inflammatory Celebrex as your primary pain control medications. If the Celebrex is too expensive or not covered, please call the office for another alternative (Advil/Ibuprofen or Naproxen/Aleve) - You have been prescribed a stronger pain medication Oxycodone for breakthrough pain, take as needed as prescribed. - You have also been prescribed a stomach acid reduction agent Pantoprozole to help reduce stomach acid and reflux. - You have been prescribed Gabapentin to take at night for restlessness and nerve pain. - You will be taking Aspirin 81mg twice a day for DVT prevention unless instructed otherwise. - You have also been prescribed Decadron to take to control post-operative nausea and pain. You will start this tomorrow. - If you have constipation you should take Colace or Miralax (both [id number]). It takes most people 3-4 days to have a bowel movement. Follow-up: 2 weeks If you have any acute concerns or questions, please do not hesitate to contact the office at [phone]. You may contact Dr. Gutiérrez with any questions after hours through the hospital at [phone] or on his cell phone at [phone]. Stand Alone Forms: Portal Information Referrals: Shiv Gutiérrez MD [ [facility] STAFF PHYSICIAN, Orthopaedic Surgical] Equipment/Supplies: Walker Activity:: Activity as Tolerated Shower/Bathe:: 72 hours Diet:: As Tolerated Discharge Orders Discharge Orders: Discharge Order (Routine); Ordered 08/24/25 Ordered By: Adam Hale DS: Diagnosis Discharge Diagnosis (1) Osteoarthritis of left knee: Status: Acute
[2025-08-24] MEDS: Celecoxib 200 MG CAP 400 MG PO (10:43)
[2025-08-24] MEDS: Acetaminophen 500 MG TAB 1000 MG PO (10:43)
[2025-08-24] MEDS: Gabapentin 300 MG CAP PO (10:43)
[2025-08-24] MEDS: Lactated Ringers 1,000 ML 80 ML IV (10:50)
--- NOTE | 2025-08-24 10:56 | ANES.PREOP_ITS ---
General Info Date of Service Date Performed: 08/24/25 Height: 5 ft 5.75 in Weight: 92.8 kg Body Mass Index (BMI): 33.3 Surgical Procedure: Operation Date: 08/24/25 12:10 Proposed Procedure Side Surgeon p Knee Total Arthroplasty Left Shiv Gutiérrez MD Actual Procedure Side Surgeon p Knee Total Arthroplasty Left Shiv Gutiérrez MD Pre-Op Diagnosis Post-Op Diagnosis Osteoarthritis of left knee Meds Allergies and Home Medications Allergies Allergy/AdvReac Type Severity Reaction Status Date / Time ANIMAL DANDER Allergy Mild Unknown Uncoded 08/24/25 10:07 DUST Allergy Mild Unknown Uncoded 08/24/25 10:07 Home Medication ?Medication ?Instructions ?Recorded atorvastatin 10 mg tablet 10 mg PO QHS #90 tabs montelukast 10 mg tablet See Rx Instructions .Route 0 10/07/24 .COMPLEX #90 tabs estradiol 0.1 mg/24 hr semiweekly 1 patch transdermal .change 05/24/25 transdermal patch twice/week #24 ea progesterone micronized 100 mg 100 mg PO QAM #90 caps 06/17/25 capsule (Prometrium) bupropion HCl 300 mg 24 hr tablet, 300 mg PO QAM #30 t abs 07/05/25 extended release acetaminophen 500 mg tablet 1,000 mg (2 x 500 mg) PO T ID #90 08/24/25 tabs aspirin 81 mg tablet,delayed 81 mg PO BID #60 tabs 07/09 release celecoxib 200 mg capsule 200 mg PO BID #60 caps 08/24 dexamethasone 4 mg tablet 4 mg PO DAILY #2 tabs docusate sodium 100 mg capsule 100 mg PO BID PRN #28 c aps 08/24/25 fexofenadine 180 mg tablet 180 mg PO HS 08/24/25 gabapentin 300 mg capsule 300 mg PO QHS #14 caps 08/24 oxycodone 5 mg tablet 5 mg PO Q4H PRN #18 tabs 07/09 pantoprazole 40 mg tablet,delayed 40 mg PO DAILY #14 t abs 08/24/25 release Current Visit Medications: Current Medications Generic Name Dose Route Start Last Admin Trade Name Freq PRN Reason Stop Dose Admin Acetaminophen 1,000 mg 08/24/25 07:28 Acetaminophen 500 Mg Tab PO 09/23/25 07:27 TID PRN PRN Analgesia Acetaminophen 1,000 mg 08/24/25 06:00 08/24/25 10:43 Acetaminophen 500 Mg Tab PO 08/24/25 23:59 1,000 mg PREOP BURTON Administration Celecoxib 400 mg 08/24/25 06:00 08/24/25 10:43 Celecoxib 200 Mg Cap PO 08/24/25 23:59 400 mg PREOP BURTON Administration Docusate Sodium 100 mg 08/24/25 07:28 Docusate Sodium 100 Mg Cap PO 09/23/25 07:27 BID PRN PRN Constipation Gabapentin 300 mg 08/24/25 06:00 08/24/25 10:43 Gabapentin 300 Mg Cap PO 08/24/25 23:59 300 mg PREOP BURTON Administration Ringer's Solution 1,000 mls @ 80 mls/hr 08/24/25 06:00 IV 08/24/25 23:59 INFUSION BURTON Cefazolin Sodium/Dextrose 2 gm in 50 mls @ 100 mls/hr 08/24/25 06:00 Ancef Duplex IVPB 08/24/25 23:59 PREOP BURTON Tranexamic Acid/Sodium Chloride 1,000 mg in 100 mls @ 600 mls/hr 08/24/25 06:00 IVPB 08/24/25 23:59 PREOP BURTON Ondansetron HCl 4 mg 08/24/25 07:28 Ondansetron 4 Mg/2 Ml Vial IVP 09/23/25 07:27 Q6H PRN PRN Nausea Oxycodone HCl 0 mg 08/24/25 07:28 Oxycodone 5 Mg Tab PO 09/23/25 07:27 Q3H PRN PRN Pain Polyethylene Glycol 17 gm 08/24/25 07:28 Polyethylene Glycol 3350 17 Gm Packet PO 09/23/25 07:27 BID PRN PRN Constipation Sodium Chloride 0 ml 08/24/25 06:00 Normal Saline Flush 10 Ml Syr IV 08/24/25 23:59 PRN PRN Sodium Chloride 0 ml 08/24/25 06:00 Normal Saline 10 Ml Vial IJ 08/24/25 23:59 DIRECTED PRN Sterile Water 0 ml 08/24/25 06:00 Water,Injection,Sterile 10 Ml Vial IJ 08/24/25 23:59 DIRECTED PRN PFSH Active Problems Active Problems: Problem Status Onset Code History of total left knee replacement Acute Z96.652 Pelvic mass Acute R19.00 Thickened endometrium Acute R93.89 Postmenopausal bleeding Acute N95.0 Degenerative joint disease of right ankle and foot Acute M19.071 Tear of deltoid ligament of right ankle Acute S93.421A Hallux rigidus of right foot Acute M20.21 Pain in right foot Acute M79.671 Pes planus of right foot Acute M21.41 Posterior tibial tendon dysfunction (PTTD) of right lower extremity Acute M76.821 Bunion, right foot Acute M21.611 Obesity Chronic E66.9 Arthritis of knee, right Acute M17.11 Dysthymia Acute F34.1 COVID-19 Acute ~01/22/22 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.1 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 ALEJANDRO; LEFT Tonsillectomy Endometrial Biopsy (02/07/12) SIMPLE HYPERPLASIA WITHOUT ATYPIA EXCISION MASS RIGHT MIDDLE FINGER (12/26/15) DR. MCCOY Tobacco Smoking/Tobacco Use Status: Former Tobacco Use Passive smoking exposure: Yes (childhood) Second hand exposure: Yes Alcohol Alcohol Intake: current Alcohol intake frequency: 0-2 drinks per day Alcohol type: wine and hard liquor Substance Use Substance use: Never Substance use type: does not use Prental History History 2 Para 2 Hx # Term Pregnancies Multiple births Hx # Pregnancies Ectopic pregnancies AB induced Hx Number of Living Children AB spontaneous Past Pregnancies Del. Date GA/Weeks # Preg Succ Route Wgt Sex Labor Lgth Anesth esia Location [facility] [place] 02/09/86 No Yes vaginal 3798.836 g Female 04/13/88 No Yes vaginal 4394.176 g Male Vital Signs and Lab Results Vital Signs Most Recent Vital Signs in EMR: Most Recent Vital Signs Temp Pulse Resp BP Pulse Ox 36.6 C 75 16 136/87 95 08/24/25 10:05 08/24/25 10:05 08/24/25 10:05 08/24/25 10:05 08/24/25 10:05 Lab Results Complete Blood Count: WBC, (4.4-10.8) 7.11 10^3/uL 08/15/25, 13:45 RBC, (3.93-5.22) 4.59 10^6/uL 08/15/25, 13:45 Hgb, (11.2-15.7) 14.2 g/dL 08/15/25, 13:45 Hct, (36.0-46.0) 41.7 % 08/15/25, 13:45 Plt Count, (130-400) 199 10^3/uL 08/15/25, 13:45 Complete Metabolic Panel: Sodium, (136-145) 143 mmol/L 08/15/25, 13:45 Potassium, (3.5-5.1) 3.8 mmol/L 08/15/25, 13:45 Chloride, (98-107) 107 mmol/L 08/15/25, 13:45 Carbon Dioxide, (20.0-31.0) 30.0 mmol/L 08/15/25, 13 :45 BUN, (9-23) 16 mg/dL 08/15/25, 13:45 Creatinine, (0.55-1.02) 0.61 mg/dL 08/15/25, 13:45 Est GFR (CKD-EPI 2020), (mL/min/1.73m2) 99.24 08/15/25, 13:45 Calcium, (8.3-10.6) 9.2 mg/dL 08/15/25, 13:45 Glucose, (74-106) 84 mg/dL 08/15/25, 13:45 Hemoglobin A1c, (<5.7) 4.9 % 08/15/25, 13:45 Anesthesia Assessment and Plan Anesthesia History Personal History: No History of Anesthesia Complications Family History: No Family History of Anesthesia Complications Exercise Tolerance Exercise Tolerance: Metabolic Equivalents>4 Pertinent Negatives Pertinent Negatives: No Symptoms of GERD Cardiac & Pulmonary Exam Cardiac Exam: Normal S1/S2 Heart Sounds Pulmonary Exam: Clear Bilateral Breath Sounds Implantable Cardiac Device Does patient have a Pacemaker or an ICD?: No Airway Exam Known Difficult Airway: No Mallampati Class: 2 Mouth Opening: Normal (> 3cm) Thyromental Distance: Greater than 3 cm Neck Range of Motion: Full ROM Neck Circumference: Normal Teeth Condition: Normal Dentition ASA Classification ASA Score: ASA 2 Emergency Case?: No NPO Status NPO Status: NPO Clears >2 hours, Solids >8 hours Anesthesia Plan Resuscitation Status: Full Code Anesthesia Technique: Spinal Anesthesia Airway Planned: Natural Airway Pain Management: Surgeon and patient request nerve block Monitors Used: Standard Monitors
[2025-08-24] MEDS: ceFAZolin 2 GM/50 ML BAG IVPB (11:45)
[2025-08-24] MEDS: TRANEXAMIC ACID/SOD. CHL. 1,000 MG/100 ML BAG 600 MG IVPB (11:58)
[2025-08-24] MEDS: ROPIvacaine/EPI/CLONIDINE/KET 50 ML SYRINGE IJ (12:21)
--- NOTE | 2025-08-24 13:08 | ROE_ITS ---
Operative Note Operative Note PRE-OP DIAGNOSIS: Left Knee Osteoarthritis POST-OP DIAGNOSIS: same PROCEDURE: Left Total Knee Replacement SURGEON: Shiv Gutiérrez BOOT AND SADDLE REPAIR PERSON: Bruce Hale ANESTHESIA TYPE: Spinal Refer to Anesthesia Record ESTIMATED BLOOD LOSS: 100 PATHOLOGY: none sent TOURNIQUET TIME: 0 COMPLICATIONS: None Patient was transported to: PACU Patient's condition: stable Implants: 1. Depuy Attune Cementless Cruciate Retaining Femoral Component, Size 5 2. Depuy Attune Cementless Fixed Bearing Tibial Component, Size 4 3. Depuy Attune 5x6mm CR/FB Poly 4. Depuy Attune Patellar Component, Size 32mm Indications: I have seen Andreea in clinic for symptoms of knee arthritis, confirmed with radiographic findings. She has exhausted nonoperative methods and was having significant limitations in daily function and desired better function and less pain. I discussed the technical details of a knee replacement. I explained the risks of the procedure to include, but not limited to, bleeding, infection, pain, stiffness, fracture, damage to nerves and vessels, damage to muscles and tendons, loosening, need for repeat procedure, blood clot and cardiopulmonary demise. Despite these risks, Andreea elected to proceed. Findings: There was significant signs of arthritis throughout the knee involving all 3 compartments with deformity of the patella. Procedure Description: Andreea was greeted in the preoperative holding area where the correct side was identified and marked. The consent was reviewed with the patient and signed. The history and physical was updated. All questions were answered. Preoperative medications were administered: Acetaminophen 1000mg, Celebrex 400mg, and Gabapentin 300mg. An adductor canal block was then administered by the anesthesia team in the DSU. She was taken back to the operating room. A spinal anesthestic was then administered. The patient was placed into the supine position on the operating room table. Posts were placed for positioning during the procedure. All bony p rominences were well padded. Prophylactic antibiotics in the form of Cefazolin were administered. 1g of Tranxemic Acid was given intravenously within 30 minutes of incision. The left leg was then prepped with Chloraprep and draped in a standard fashion with impervious stockinette. A second prep with Chloraprep was performed prior to application of Iodine impregnated skin protection. A timeout to confirm correct identity, side and site, procedure, allergies, anesthesia, and medical concerns was performed. With the knee in some flexion, a midline incision was made overlying the knee. Full thickness skin flaps were raised once the extensor mechanism was encountered. These were raised medially and laterally. Any bleeding was controlled with electrocautery. Once the extensor mechanism was fully exposed, a medial parapatellar arthrotomy was performed in a flexed position. All bleeding from the arthrotomy and the geniculate arteries was coagulated. A medial subperiosteal peel was performed with electrocautery to the midcoronal plane. The fat pad was removed while keeping the patellar tendon protected. The anterior distal femur synovium was removed for later visualization. The ACL and PCL were resected and the anterior horn of the lateral meniscus was transected. The knee was then flexed with the patella everted. Large osteophytes from the tibia were removed. Large osteophytes from the femur were removed. Using a step drill, and based on preoperative templating, the femoral canal was entered. This was done with a step drill without any difficulty. The intra medullary distal femoral cut guide was inserted, set to a 5 degree valgus cut and 9mm cut thickness. The distal femoral cut guide was then held in position and pinned. With the soft tissues protected, the distal cut was performed. This was passed over a few times to ensure a planar cut. I then turned attention to the tibia. The extramedullary guide was placed onto the leg. The distal aspect was slid medial to adjust for position of center of ankle and stay in line with shaft of the tibia. Approximately 5 degrees of posterior slope was kept in the proximal cutting guide. The center of the guide was aligned with the PCL. The stylus was used to assess cut thickness. The medial side, most involved side, was set for a 6mm cut, corresponding to 9mm laterally. This was then held in position and pinned into place with 2 additional pins and a cross pin for stability. The medial and lateral collateral ligaments were protected and the cut was performed. With this completed, it was assessed and noted to be of appropriate dimensions. The guide was removed. A spacer block was inserted and the knee was brought into extension. The 6mm spacer block provided full extension, without hyperextension and with stability of both the medial and lateral collateral ligaments was assessed. The pins from the femur and the tibia were then removed. The distal femur was then sized. The anterior stylus was placed onto the lateral ridge of the anterior femur. This indicated a size 5 femur. The external rotation of the guide was adjusted to 3 degrees to match the epicondylar axis, perpendicular to [place]?s line. The 4-in-1 cutting guide was the placed. The posterior medial femur cut was evaluated and appeared of good thickness. The spacer block was inserted underneath the cutting guide and stability was confirmed in 90 degrees of flexion. An yasemin wing was used to confirm appropriate position of the anterior cut to avoid notching. This cutting guide was ensured to be flush on the cut surface and then pinned into place with headed pins. While protecting the soft tissues, quad tendon, and collateral ligaments, the anterior and posterior cuts were performed with a saw. The central two pins were removed and the posterior and anterior chamfers were cut next. The notch-cutting guide was placed. This was pinned to lateralize the femoral component as much as possible while keeping it flush on the cut surface. This was then pinned into position. A reciprocating saw was used to make the notch cut. A rasp smoothed the cut surfaces. The medial and lateral menisci were removed. A trial femoral component was then inserted, impacted down to the cut surfaces, and the lug holes were drilled. A provisional trial tibial component was placed and the knee was brought through range of motion. There was noted to be excellent extension and flexion. There was no significant instability. The patella was tracking without thumbs. A size 6mm polyethylene component provided the best range of motion and stability with less than 2mm gapping with medial and lateral stress and full extension without significant hyperextension. The tibial cut surface was fully exposed. The tibia was then sized as a 4. The tibia had been previously marked during trialing to correspond to the center of the tibial component to help with rotation. The trial was aligned to this bruce, approximately rotated to the medial 1/3rd of the tibial tubercle. The trial was pinned into place. The tibia was prepared with a reamer and a keel punch and lug holes. The knee was then brought into extension and the patella was measured as 21mm although there was significant deformity which made it tough to measure. Using the patellar clamp and cut guide, this was resected to a flat surface at the bottom of the lateral trough in the patella, leaving at least 13mm of thickness remaining. The size 32mm patella fit the best. This was oriented and then clamped into position. The lugs were drilled. The trial components were removed. The final components were opened on the back table. The periosteal and capsular tissues, especially posteriorly, around the knee were then systematically injected with a periarticular cocktail consisting of 246mg of Ropivacaine, 0.5mg of Epinephrine, 0.08mg of Clonidine, and 30mg of Ketorolac, diluted to 100cc. On the back table, with the implants opened. The cement was mixed. One batch of high viscosity cement was prepared with vacuum assistance. After the cement was ready a small amount was placed on the cut surface of the patella and the patellar button was clamped into position and held. The cementless knee components were placed. Starting with the tibial component, the tibia was subluxed anteriorly and the lug holes of the component were lined up. The tibia was then impacted with an impactor and mallet until the tibial component was in contact with the tibia. Then, the femoral component was inserted. The lug holes were aligned and the component was impacted into position. The final polyethylene component was inserted. The knee was irrigated with Surgiphor Betadine solution. This was allowed to sit in the knee for 3 minutes and then it was irrigated out with saline. After the cement had finally cured, approximately 15min, the clamp was removed from the patella and the knee was taken through range of motion. The patella was tracking with a no-thumbs technique. A complete synovectomy was performed around the periphery of the patella. A lateral facetectomy was also performed. The capsule was then reapproximated with a No. 1 Vicryl at multiple locations. The capsule was finally closed with a No. 2 Stratafix, barbed suture. Deep tissues were then reapproximated with 0 Vicryl and 2-0 Vicryl. The skin was closed with a running 3-0 Monocryl in a subcuticular fashion. This was reinforced with skin glue. A Mepilex silver dressing was applied along with a [id number] RALF wrap. A CryoCuff was applied. Andreea was transferred to the hospital bed without difficulty an suffering no apparent complication. Andreea has a good prognosis. Physical therapy will start today and without restrictions, weight-bearing as tolerated. Aspirin 81mg BID will be used for DVT prophylaxis. Date of Procedure: 08/24/25
--- NOTE | 2025-08-24 13:52 | W.ANESNERVE ---
Nerve Block Single Injection Procedure Date and Time Date Performed: 08/24/25 Procedure Start: 11:14 Location Where Procedure Performed Procedure Location: Day Surgery Unit Reason Performed: Postoperative Analgesia Requesting Provider: Shiv Gutiérrez Timeout Performed Timeout Performed: Yes Monitoring Used ECG, Blood Pressure, SpO2 and See EMR for corresponding vital signs Sterility Sterility: Hand Hygiene, Surgical Cap, Surgical Mask, Sterile Gloves and Chlorhexidine Sedation Given During Procedure Sedation Given (Indicate Dose Given): No Sedation given Patient Mental Status Patient Mental Status: Awake Nerve Block 1st Nerve Block: Laterality: Left Block Type: Adductor Canal Ultrasound Image Saved?: Yes Needle / Catheter Used: 100mm SonoPlex II Local Anesthetic Bolus (Indicate Dose Given): Lidocaine used for local infiltration of skin, Injected in 3-5ml increments after negative blood aspiration, Bupivacaine 0.25% Dose:: 10ml and Exparel Dose:: 10ml Additives (Indicate Dose Given): None Ultrasound: Sterile probe cover and gel used Nerve Stimulator: Supplement to Ultrasound use and No twitch or parasthesia noted < 0.5 mA Paresthesia: None Procedure Tolerated: No Complications and Patient tolerated well Procedure Outcome: Successful Performed By: Spencer Chanel
--- NOTE | 2025-08-24 14:14 | W.ANESPOSTOP ---
Postoperative Evaluation Date, Time and Location Date Performed: 08/24/25 Time Performed: 14:14 Patient Location: Day Surgery Unit Vital Signs Most Recent Imported Vital Signs: Most Recent Vital Signs Temp Pulse Resp BP Pulse Ox 36.5 C 70 20 141/78 H 95 08/24/25 13:48 08/24/25 13:51 08/24/25 13:51 08/24/25 13:51 08/24/25 13:51 Pain Score Most Recent Pain Score: Most Recent Pain Score Pain Level 0 08/24/25 13:48 Assessment Mental Status: Awake (Alert & Oriented to Patient Baseline) Airway and Respiratory Function: Patent airway with normal (patient baseline) respiratory exam Cardiovascular Function: Hemodynamically Stable Hydration Status: Adequately Hydrated Nausea & Vomiting: No Nausea or Vomiting Pain: Pt. Denies Any Pain Peripheral Nerve Block: Regional nerve block not resolved at time of post operative discharge
[2025-08-24] MEDS: oxyCODONE 5 MG TAB PO (15:03)
[2025-08-24] MEDS: Tranexamic Acid 650 MG TAB 1300 MG PO (15:04)
--- NOTE | 2025-08-24 15:39 | IN_ITS ---
PT Notes Visit Reasons: L TKR Physical Therapy Day Surgery Initial Evaluation Date: 08/24/2025 Referring Doctor: JULI Braun PT Orders: PT CONSULT: S/P Ortho surgery Precautions: WBAT on left LE with AD. Patient Profile/Admitting Diagnosis: Andreea is a 61-year-old female with degenerative joint disease of the left knee and status post left total knee arthroplasty on postoperative day 0. 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 (Acute) Tear of deltoid ligament of right ankle (Acute) Hallux rigidus of right foot (Acute) Pain in right foot (Acute) Pes planus of right foot (Acute) Posterior tibial tendon dysfunction (PTTD) of right lower extremity (Acute) Bunion, right foot (Acute) Obesity (Chronic) Arthritis of knee, right (Acute) Dysthymia (Acute) COVID-19 (Acute ~01/22/22) Tubulovillous adenoma (Acute) Sessile colonic polyp (Acute) Diverticula of colon (Acute) few&small- sigmoid Adenomatous polyps (Acute) Intramural uterine fibroid (Acute) Simple endometrial hyperplasia (Acute) Hyperlipidemia with target LDL less than 100 (Acute) Endometrial hyperplasia (Acute 03/10/12) WITHOUT ATYPIA 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 Gomez; Tenosynovial Polyp of colon (Acute 12/06/13) 12/06/13; TUBULAR ADENOMA Facial lesion (Acute) Screening for viral disease (Acute) Onychomycosis due to dermatophyte (Acute 06/23/12) Surgical History History of colonoscopy with polypectomy (~06/15/21) bunionectomy (11/02/14) DR. ALEJANDRO; LEFT Tonsillectomy Endometrial Biopsy (02/07/12) SIMPLE HYPERPLASIA WITHOUT ATYPIA EXCISION MASS RIGHT MIDDLE FINGER (12/26/15) DR. MCCOY Social History/Home Situation: Lives with in a private home with 2 steps to enter without rails. algebra teacher. Has a flight of steps to the second floor of the house where the bedroom Equipment Owned/DME: [facility] Subjective: Agreeable to session. Nurse Maria Del Rosario has already walked patient as she needed to use the bathroom to void urine. Denied headache, chest pain, and lightheadedness throughout session. Objective: General Observation: Carlos wraps to left LE. Cryo/Cuff to left knee. TEDS to right leg and foot. Mental Status: A and O x 4 Pain: 4/10 in the L knee ROM: Right Lower Extremity: Hip flexion WFL. Hip abduction WFL. Knee flexion WFL. Ankle dorsiflexion WFL. Ankle plantarflexion WFL. Left Lower Extremity: Hip flexion WFL. Hip abduction WFL. Knee flexion 0-100 degrees. Ankle dorsiflexion WFL. Ankle plantarflexion WFL. Strength: Right Lower Extremity: Hip flexors 5/5. Hip abductors 5/5. Knee flexors 5/5. Knee extensors 5/5. Ankle dorsiflexors 5/5. Ankle plantarflexors 5/5. Left Lower Extremity:Hip flexors 4/5. Hip abductors 4/5. Knee flexors 3-/5. Knee extensors 4/5. Ankle dorsiflexors 5/5. Ankle plantarflexors 5/5. Sensation: Intact as to pain and light pressure in B LE Bed Mobility/Transfers: Minimal cueing provided for use of B hands as needed for support, movement sequence, AD management, and posture to reduce fall risk and minimize pain report Supine to sit standby assist Sit to stand contact-guard assist Stand to sit standby assist with FWW Bed to chair standby assist with FWW Gait: Facilitate safe and correct performance of level surface eburnation covering a distance of 150 feet using front wheeled walker with standby assist provided and minimal minimal verbal cueing for AD management, limb movement sequence, weight distribution onto AD, and posture to minimize pain report and reduce fall risk. Stairs: Guided patient with safe and correct negotiation of 3 x 4 inch steps and 2 x 6 inch steps while holding onto 1 rail and using a single-point cane on the other side requiring only standby assist and minimal verbal cueing for limb movement sequence, hand placement and weight distribution onto rail and SPC, and posture to minimize pain reported and reduce fall risk. Balance: Static Sitting: Normal Dynamic Sitting: Good Static Standing: Fair Dynamic Standing: Fair Special Tests: Mobility Limitations Standardized Measure [facility] AM-PAC 6 clicks Basic Mobility Inpatient Short Form: Raw Score: 23 CMS Score: 11% deficit Informed Consent/Education: Patient instructed in purpose of PT consult. Compa acket containing TKA exercise protocol has been given to patient. Education and training on initial set of exercises that can be done at home have been completed with patient. Trained patient with correct performance of exercises below to maximize motor control, joint flexibility, soft tissue extensibility of the L knee musculature: Access Code: [email or web address] URL: [email or web address] Date: 08/24/2025 Prepared by: Chitra Gomez Exercises - Supine Quad Set - 1 x daily - 7 x weekly - 1 sets - 10 reps - 5 hold - Supine Heel Slide - 1 x daily - 7 x weekly - 1 sets - 10 reps - 5 hold - Supine Ankle Pumps - 1 x daily - 7 x weekly - 1 sets - 10 reps - 5 hold - Small Range Straight Leg Raise - 1 x daily - 7 x weekly - 1 sets - 10 reps - 5 hold - Seated March - 1 x daily - 7 x weekly - 1 sets - 10 reps - 5 hold Assessment: Patient required the use of a front wheeled walker for all mobility ADL performance to maximize independence and reduce fall risk.Patient presents with clinical signs and symptoms consistent with current/admitting diagnoses that have resulted to mobility limitations, gait instability, generalized weakness, and impairment of motor control as demonstrated by the following impairment level findings: 1. Decreased strength to left knee major muscle groups 2. Impaired standing balance 3. Limitation of joint range of motion in left knee Impairments are contributing to the following functional limitations: 1. Inability to safely ambulate without assistive device 2. Increase completion time for mobility ADL performance 3. Increased fall risk Patient is assessed as a 30708 moderate complexity based on the following: History: 60-year-old female with impairment level findings, functional limitations, and past medical history as indicated above Examination: Demonstrable impairment in strength, balance, and mobility level with underlying impairments and functional limitations as documented above Presentation: Evolving Decision Makin moderate complexity Goals: N/A. PT evaluation and 1-2 treatment sessions only for functional mobility training using recommended AD and for HEP instruction. Plan of Care/Treatment Plan: N/A. PT evaluation and 1-2 treatment session only for functional mobility training using recommended AD and for HEP instruction. DISCHARGE RECOMMENDATIONS: Home when medically cleared by orthopedic surgeon. Recommend outpatient PT services in order to optimize functional mobility outcomes and facilitate return to independent community ambulation without an assistive device. TREATMENT CODE/TIME: 87190 x 20 minutes for 1 unit, 58609 x 11 minutes for 1 unit (15:39-16:10). Thank you for the opportunity to participate in the care of this patient. Chitra Gomez PT, DPT, CLT [facility] [place], [place]
== END 2025-08-24 16:14 | disposition home or self-care (01) ==
LOC: SUR 09:44
PROVIDERS: PCP Family Medicine; Visit Provider Student in an Organized Health Care Education/Training Program
PROC: (CPT 27447; principal; 2025-08-24 12:00)
DX: M17.12 Unilateral primary osteoarthritis, left knee (principal); G89.18 Other acute postprocedural pain
CPT/HCPCS: 27447; 64447; 97162; 97530; C1776; J0665; J0666; J0690; J1100; J2250; J2371; J2401; J2405; J2704

== ENCOUNTER 2025-09-05 15:50 | Outpatient (CLI) | payer BC, SELFPAY ==
--- NOTE | 2025-09-05 12:00 | DI.RAD_ITS ---
Exam(s) XR KNEE LT 1V EXAM: XR KNEE LT 1V CLINICAL HISTORY: 1ST POST OP S/P L TKA. TECHNIQUE: 2D digital imaging was performed. COMPARISON: CR XR KNEE LT 1V from 08/16/2025 FINDINGS: Single lateral view There has been interval placement of a knee prosthesis. Components of the prosthesis are in satisfactory position alignment with no evidence of fractures nor loosening. No evidence of osteomyelitis. IMPRESSION: Satisfactory appearance DATA REPOSITORY: RADIATION DOSE DELIVERED:
--- NOTE | 2025-09-05 12:00 | DI.RAD_ITS ---
Exam(s) XR STANDING ALIGNMENT EXAM: XR STANDING ALIGNMENT CLINICAL HISTORY: 1ST POST OP S/P L TKA. TECHNIQUE: 2D digital imaging was performed. COMPARISON: No exams were available for comparison FINDINGS: 3 views There has been interval placement of a left knee prosthesis. This appears satisfactory there is moderate narrowing of the medial compartment of the opposite-right knee and marginal osteophytes off both medial lateral compartments of the right knee as well as chondrocalcinosis. There are mild degenerative changes in both hips. Large joint. Left ankle appears unremarkable CS lesions. Bone density is age-appropriate. IMPRESSION: As above DATA REPOSITORY: RADIATION DOSE DELIVERED:
== END 2025-09-05 15:51 | disposition home or self-care (01) ==
LOC: DIORS 15:50
PROVIDERS: PCP Family Medicine; Visit Provider Student in an Organized Health Care Education/Training Program
DX: Z96.652 Presence of left artificial knee joint (principal)
CPT/HCPCS: 73560; 77073